=== PATIENT | female | born 1995 | race African-American/Black ===

== ENCOUNTER 2024-03-13 11:44 | Outpatient (CLI) | payer OTHER | END 2024-03-13 11:47 | disposition home or self-care (01) | LOC: PRENATAL 11:44 | PROVIDERS: ATTEND Obstetrics & Gynecology Maternal & Fetal Medicine | DX: O26.849 Uterine size-date discrepancy, unspecified trimester (principal); O36.8199 Decreased fetal movements, unspecified trimester, other fetus; O34.219 Maternal care for unspecified type scar from previous cesarean delivery; Z3A.35 35 weeks gestation of pregnancy ==